=== PATIENT | male | born 1985 | race Caucasian/White ===

== ENCOUNTER 2021-06-02 15:33 | Emergency (ER) | payer MEDICAID ==
[~2021-06-02] VITALS: Ht 180.3 cm; Wt 133.4 kg
[2021-06-02 15:39] VITALS: BP 129/89
--- NOTE | 2021-06-02 15:50 | NUR ---
PT AMBULATED TO BED, STEADY GAIT
--- NOTE | 2021-06-02 15:53 | NUR ---
JAIDA WARNER AT BEDSIDE EXAMINING PT
[2021-06-02] MEDS ORDERED: KETOROLAC 30 MG/ML VIAL IM ONE (15:55)
--- NOTE | 2021-06-02 15:57 | NUR ---
XRAY AT BEDSIDE
--- NOTE | 2021-06-02 16:00 | NUR ---
35 y/o male c/o worsening right leg pain, erythema and swelling x 3 weeks. pt states he was kicked on the right castillo after playing soccer. burning pain 7/10, (+)numbness, (+)tingling. also reports on and off fever and chills. temp not taken. tylenol last taken last night. rt leg skin warm to touch, tender upon movement. pmh: none nka
--- NOTE | 2021-06-02 16:08 | NUR ---
ULTRASOUND AT BEDSIDE
[2021-06-02] MEDS ORDERED: NAPR-54 PO (16:45)
[2021-06-02] MEDS ORDERED: CEPH-588 PO (16:45)
[2021-06-02] MEDS ORDERED: ACET-8386 PO (16:50)
[2021-06-02 16:57] VITALS: BP 129/89
--- NOTE | 2021-06-02 16:57 | NUR ---
Patient discharged with v/s stable. Written and verbal after care instructions given and explained. Patient alert, oriented and verbalized understanding of instructions. Ambulatory with steady gait. All questions addressed prior to discharge. ID band removed. Patient advised to follow up with PMD. Rx of KEFLEX AND NAPROSYN given. Patient educated on indication of medication including possible reaction and side effects. Opportunity to ask questions provided and answered.
== END 2021-06-02 16:57 | disposition home or self-care (01) ==
LOC: MED 15:33
DX: L03.115 Cellulitis of right lower limb (principal)
CPT/HCPCS: 73590; 93971; 96372; 99284; J1885; Q0092

== ENCOUNTER 2021-06-05 09:31 | Emergency (ER) | payer MEDICAID ==
[~2021-06-05] VITALS: Ht 180.3 cm; Wt 133.8 kg
[~2021-06-05 09:31] MED LIST: ACET-8386 PO; CEPH-588 PO; NAPR-54 PO
[2021-06-05 09:37] VITALS: BP 136/84
--- NOTE | 2021-06-05 10:23 | NUR ---
DR. YUN EVALUATING PATIENT AT BEDSIDE.
[2021-06-05] MEDS: ETHYL CHLORIDE 105 ML SPR TP ONE (11:06)
[2021-06-05] MEDS ORDERED: ACET-8386 PO (11:07)
[2021-06-05] MEDS ORDERED: SULF-58 PO (11:07)
[2021-06-05] MEDS ORDERED: LOTC TP (11:07)
[2021-06-05] MEDS ORDERED: BACITRACIN OINT 500 UNITS/GM PKT TP ONE (11:22)
[2021-06-05] MEDS: BACITRACIN OINT 500 UNITS/GM PKT TP ONE (11:32)
[2021-06-05 11:35] VITALS: BP 136/84
--- NOTE | 2021-06-05 11:35 | NUR ---
Patient discharged with v/s stable. Written and verbal after care instructions ABOUT ATHLETE'S FOOT AND CELLULITIS given and explained. Patient alert, oriented and verbalized understanding of instructions. Ambulatory with steady gait. All questions addressed prior to discharge. ID band removed. Patient advised to follow up with PMD. Rx of HYDROCODONE/ACETAMINOPHEN, LOTIMIN 1% AND BACTRIM 400-80MG TAB given.
--- NOTE | 2021-06-05 11:36 | NUR ---
The patient's care was reviewed and supervised by Hailee Sloan RN.
== END 2021-06-05 11:55 | disposition home or self-care (01) ==
LOC: MED 09:31
DX: L03.115 Cellulitis of right lower limb (principal)
CPT/HCPCS: 10021; 90471; 90715; 99283

== ENCOUNTER 2021-07-28 12:29 | Emergency (ER) | payer MEDICAID ==
[~2021-07-28] VITALS: Ht 182.9 cm; Wt 135.3 kg
[~2021-07-28 12:29] MED LIST changes: +LOTC TP; +SULF-58 PO
[2021-07-28 12:47] VITALS: BP 140/76
--- NOTE | 2021-07-28 12:54 | NUR ---
PT TO [facility]ELTON
[2021-07-28 13:23] LABS: EOSINOPHILS # (AUTO) 0.2 K/uL (0-0.4); MONOCYTES # (AUTO) 0.6 K/uL (0.8-1.0)
--- NOTE | 2021-07-28 13:24 | NUR ---
pt returned from xray and placed in bed 07
[2021-07-28 13:28] LABS: BASOPHILS % (AUTO) 0.5 % (0.0-2.0); EOSINOPHILS % (AUTO) 3.3 % (0.0-4.0); HEMATOCRIT 44.6 % (36-52); HEMOGLOBIN 14.7 g/dL (12.0-18.0); LYMPHOCYTES # (AUTO) 1.5 K/uL (2.0-11.5); LYMPHOCYTES % (AUTO) 27.3 % (20.5-51.1); MEAN CORPUSCULAR HEMOGLOBIN 28 pg (27-31); MEAN CORPUSCULAR HGB CONC 33 g/dL (33-37); MEAN CORPUSCULAR VOLUME 85.4 fL (80-94); MONOCYTES % (AUTO) 11.3 % (1.7-9.3); NEUTROPHILS # (AUTO) 3.2 K/uL (1.8-7.7); NEUTROPHILS % (AUTO) 57.6 % (42.2-75.2); PLATELET COUNT (AUTO) 191 K/uL (140-450); RED BLOOD CELL COUNT(AUTO) 5.23 MIL/uL (4.20-6.10); WHITE BLOOD COUNT (AUTO) 5.6 K/uL (4.8-10.8)
--- NOTE | 2021-07-28 13:30 | NUR ---
35 y/o male, c/o rash and right lower leg and pain for 60 days. denies nausea, vomiting, diarrhea. skin is pink/warm/dry. a&o x4 with even and steady gait. lungs clear bl, heart rate even and regular. pt denies dysuria, hematuria, urinary frequency or retention, or anyone sick in the household with the same symptoms. pt denies any fever, cp, sob, or cough at this time. pt states pain is 3/10 at this time. vss. patient positioned for comfort. hob elevated. bed down. ermd made aware of pt. pmh: denies nka
[2021-07-28 13:37] LABS: ALBUMIN 3.9 g/dL (3.4-5.0); ANION GAP 11.6 (8-16); CARBON DIOXIDE 28.4 mmol/L (21-32); TOTAL BILIRUBIN 0.6 mg/dL (0.0-1.0)
[2021-07-28] MEDS ORDERED: CLIN300C2 PO (13:39)
[2021-07-28] MEDS ORDERED: HYD1C TP (13:49)
[2021-07-28] MEDS ORDERED: HYD2.5C RC (13:52)
[2021-07-28 14:03] VITALS: BP 140/76
--- NOTE | 2021-07-28 14:09 | NUR ---
Patient discharged with v/s stable. Written and verbal after care instructions given and explained. Patient verbalized understanding. Ambulatory with steady gait. All questions addressed prior to discharge. Advised to follow up with PMD.
== END 2021-07-28 14:09 | disposition home or self-care (01) ==
LOC: MED 12:29
DX: L03.115 Cellulitis of right lower limb (principal); R21 Rash and other nonspecific skin eruption
CPT/HCPCS: 36415; 73590; 80053; 85025; 99284